=== PATIENT | female | born 1995 | race Two or more races ===

== ENCOUNTER 2024-05-16 21:06 | Emergency (ER) | payer OTHER ==
[~2024-05-16] VITALS: Ht 160 cm; Wt 54.4 kg
[2024-05-16 21:24] VITALS: BP 107/74; O2SAT 99
[2024-05-16] MEDS ORDERED: KETOROLAC TROMETHAMINE 30 MG VIAL IV ONE (21:30)
[2024-05-16] MEDS ORDERED: METOCLOPRAMIDE HCL 10 MG in DEXTROSE 5 % IN WATER 50 ML IV ONE (21:30)
[2024-05-16] MEDS ORDERED: DIPHENOXYLATE HCL/ATROPINE 1 UDTAB TABLET PO ONE (21:30)
[2024-05-16 22:12] LABS: HEMATOCRIT 38.9 % (36.0-45.00); HEMOGLOBIN 13.2 g/dL (12.0-15.00); MEAN CELL VOLUME 88.3 fL (80.00-100.00); MEAN CORPUSCULAR HGB CONC 33.9 g/dl (32.0-36.0); PLATELET COUNT 257 K/uL (150-450); RED CELL DISTRIBUTION WIDTH 14.4 % (11.5-14.5)
[2024-05-16 22:35] LABS: ALBUMIN 4.4 gm/dL (3.4-5.0); BILIRUBIN TOTAL 1.19 mg/dL (0.3-1.2); CALCIUM 9.5 mg/dL (8.5-10.1); CREATININE SERUM 0.77 mg/dL (0.55-1.02); GFR 87.43; GLOBULINA 3.8 G/DL (2.4-3.5); POTASSIUM 3.68 mEq/L (3.5-5.1); TOTAL PROTEIN 8.2 gm/dL (6.4-8.2)
[2024-05-16] MEDS ORDERED: PEPCID AC20 MG PO (23:28)
[2024-05-16] MEDS ORDERED: ONDANSETRON ODT8 MG PO (23:28)
== END 2024-05-17 02:55 | disposition home or self-care (01) ==
LOC: ER 21:06
PROVIDERS: General Practice
DX: K52.89 Other specified noninfective gastroenteritis and colitis (principal); R11.2 Nausea with vomiting, unspecified; Z20.822 Contact with and (suspected) exposure to COVID-19